=== PATIENT | male | born 1955 | race Caucasian/White ===

== ENCOUNTER 2018-03-03 14:54 | Emergency (ER) | payer BC ==
[~2018-03-03] VITALS: Ht 180.3 cm; Wt 62.1 kg
== END 2018-03-03 18:36 | disposition home or self-care (01) ==
LOC: ER 14:54
DX: S01.82XA Laceration with foreign body of other part of head, initial encounter (principal); R42 Dizziness and giddiness; W26.8XXA Contact with other sharp object(s), not elsewhere classified, initial encounter; Y93.89 Activity, other specified; Y92.038 Other place in apartment as the place of occurrence of the external cause; Y99.8 Other external cause status